=== PATIENT | male | born 1995 ===

== ENCOUNTER 2024-11-05 11:53 | Emergency (ER) | payer MEDICAID, OTHER ==
[~2024-11-05] VITALS: Ht 162.6 cm; Wt 84.7 kg
--- NOTE | 2024-11-05 12:29 | ED.PDOC ---
GI ASSESSMENT HPI Comments 29-year-old male presents with a chief complaint of abdominal pain. Patient states that his pain is localized to his lower abdomen region, nonradiating, and describes as cramping sensation. Patient denies any nausea, vomiting, or diarrhea. No other symptoms or modifying factors present at this time. Chief Complaint: Abdominal Pain Time Seen by MD: 12:19 Primary Care Provider: none Reviewed Notes: Medications, Allergies Allergies: Coded Allergies: NO KNOWN ALLERGIES (Unverified , 11/05/24) Home Meds Active Scripts Dicyclomine Hcl (BENTYL CAPSULE) 10 Mg Cp, 1 CAP PO Q6HPRN PRN for 10 Days, #100 CAP 3 Refills Prov:ADRI BELL MD 11/05/24 Ondansetron Odt 4MG Tab (ZOFRAN PO) 4 Mg Tb, 4 MG PO Q6HP PRN for 7 Days, #28 TAB ODT TAB-DISSOLVE IN MOUTH, THEN SWALLOW Prov:ADRI BELL MD 11/05/24 Information Source: Patient Mode of Arrival: Ambulatory Timing: Days Duration: Since onset Prehospital treatment: None Quality: Cramping Vomitus: None Stool: Normal Severity: Moderate Recent: None Recent Hx of: None Pain Location: RLQ, LLQ Past Medical History PAST MEDICAL HISTORY: Denies Surgical History: Denies all surgeries Family History Family History: Reviewed,noncontributory to illness, No family hx of Cancer, No family hx of DM, No family hx of Heart ewa, No family hx of HTN, No family hx ofKidney ewa, No family hx of Liver ewa, No family hx of Lung ewa, No family hx of Stroke Social History Smoker: Non-Smoker Alcohol: Denies ETOH Use Drugs: Denies Drug Use Lives In: Home Constitutional: denies: chills, diaphoresis, fatigue, fever, malaise, sweats, weakness, others EENTM: denies: blurred vision, double vision, ear bleeding, ear discharge, ear drainage, ear pain, ear ringing, eye pain, eye redness, hearing loss, mouth pain, mouth swelling, nasal discharge, nose bleeding, nose congestion, nose pain, photophobia, tearing, throat pain, throat swelling, voice changes, others Respiratory: denies: cough, hemoptysis, orthopnea, SOB at rest, shortness of breath, SOB with excertion, stridor, wheezing, others Cardiovascular: denies: chest pain, dizzy spells, diaphoresis, Dyspnea on exertion, edema, irregular heart beat, left arm pain, lightheadedness, palpitations, PND, syncope, others Gastrointestinal: reports: abdominal pain; denies: abdomen distended, blood streaked bowels, constipated, diarrhea, dysphagia, difficulty swallowing, hematemesis, melena, nausea, poor appetite, poor fluid intake, rectal bleeding, rectal pain, vomiting, others Genitourinary: denies: burning, dysuria, flank pain, frequency, hematuria, incontinence, penile discharge, penile sore, pain, testicle pain, testicle s welling, urgency, others Neurological: denies: dizziness, fainting, headache, left sided numbness, left sided weakness, numbness, paresthesia, pre-existing deficit, right sided numbness, right sided weakness, seizure, speech problems, tingling, tremors, weakness, others Musculoskeletal: denies: back pain, gout, joint pain, joint swelling, muscle pain, muscle stiffness, neck pain, others Integumetry: denies: bruises, change in color, change in hair/nails, dryness, laceration, lesions, lumps, rash, wounds, others Allergic/Immunocompromised: denies: Difficulty Healing, Frequent Infections, Hives, Itching, others Hematologic/Lymphatic: denies: anemia, blood clots, easy bleeding, easy bruising, swollen glands, others Endocrine: denies: excessive hunger, excessive sweating, excessive thirst, excessive urination, flushing, intolerance to cold, intolerance to heat, unexplained weight gain, unexplained weight loss, others Psychiatric: denies: anxiety, bipolar disorder, depression, hopeless, panic disorder, schizophrenia, sleepless, suicidal, others All Other Systems: Reviewed and Negative Physical Exam General Appearance: No Apparent Distress, Normal HEENT: Normal ENT Inspection, Pharynx Normal, TMs Normal Neck: Full Range of Motion, Non-Tender, Normal, Normal Inspection Respiratory: Chest Non-Tender, Lungs Clear, No Accessory Muscle Use, No Respiratory Distress, Normal Breath Sounds Cardiovascular: No Edema, No JVD, No Murmur, No Gallop, Normal Peripheral Pulses, Regular Rate/Rhythm Breast Exam: Deferred Gastrointestinal: No Organomegaly, Non Tender, No Pulsatile Mass, Normal Bowel Sounds, Soft Genitalia: Deferred Pelvic: Deferred Rectal: Deferred Extremities: No calf tenderness, Normal capillary refill, Normal inspection, N ormal range of motion, Non-tender, No pedal edema Musculoskeletal : Apperance: Normal 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 Was a procedure done?: No GI differential Dx Differential Diagnosis: Appendicitis, Bowel Obstruction, Diverticular disease, Gastritis/PUD, Gastroenteritis, Inflammatory BD, Urolithiasis, Dehydration, Other X-Ray, Labs, Meds, VS Vital Signs Date Time Temp Pulse Resp B/P (MAP) Pulse Ox O2 Delivery O2 Flow Rate FiO2 11/05/24 15:24 99.1 81 20 154/78 (103) 98 99.1 11/05/24 13:35 97.9 77 17 143/78 (99) 97 97.9 11/05/24 13:35 77 17 97 Room Air 11/05/24 13:30 74 14 95 Room Air* 0 21 11/05/24 12:04 99.5 78 15 138/73 (94) 97 Lab Test 11/05/24 15:56 11/05/24 12:35 Range/Units Urine Color Colorless Yellow Urine Clarity Clear Clear Urine pH 6.0 5.0-9.0 Urine Specific [place]st 1.024 1.001-1.035 Urine Protein Negative Negative Urine Ketones Negative Negative Urine Blood Negative Negative /uL Urine Nitrite Negative Negative Urine Bilirubin Negative Negative Urine Urobilinogen Normal Negative mg/dL Urine Leukocyte Esterase Negative Negative /uL Urine RBC 1 0 - 3 /hpf Urine Microscopic WBC 0-3 /HPF Urine Squamous Epithelial Cells None seen <5 /hpf Urine Bacteria None seen None Seen /hpf Urine Glucose Normal Normal mg/dL White Blood Count 6.2 4.4-10.8 10^3/uL Red Blood Count 5.18 4.5-5.90 10^6/uL Hemoglobin 16.1 13.5-17.5 g/dL Hematocrit 46.3 41.0-53.0 % Mean Corpuscular Volume 89.5 80.0-100.0 fL Mean Corpuscular Hemoglobin 31.2 28.0-32.0 pg Mean Corpuscular Hemoglobin Concent 34.8 32.0-36.0 g/dL Red Cell Distribution Width 13.1 11.8-14.3 % Platelet Count 240 140-450 10^3/uL Mean Platelet Volume 9.0 6.9-10.8 fL Neutrophils (%) (Auto) 57.8 37.0-80.0 % Lymphocytes (%) (Auto) 32.1 10.0-50.0 % Monocytes (%) (Auto) 7.4 0.0-12.0 % Eosinophils (%) (Auto) 2.3 0.0-7.0 % Basophils (%) (Auto) 0.4 0.0-2.0 % Neutrophils # (Auto) 3.6 1.6-8.6 10 ^3/uL Lymphocytes # (Auto) 2.0 0.4-5.4 10 ^3/uL Monocytes # (Auto) 0.5 0-1.3 10 ^3/uL Eosinophils # (Auto) 0.1 0-0.8 10 ^3/uL Basophils # (Auto) 0 0-0.2 10 ^3/uL Nucleated Red Blood Cells 0.1 % Sodium Level 139 136-145 mmol/L Potassium Level 3.7 3.5-5.1 mmol/L Chloride Level 104 98-107 mmol/L Carbon Dioxide Level 27 20-31 mmol/L Anion Gap 8 5-15 Blood Urea Nitrogen 12 9-23 mg/dL Creatinine 0.97 0.700-1.30 mg/dL Glomerular Filtration Rate Calc 108 >90 mL/min BUN/Creatinine Ratio 12.4 10.0-20.0 Serum Glucose 104 74-106 mg/dL Calcium Level 10.1 8.7-10.4 mg/dL Total Bilirubin 0.8 0.2-1.0 mg/dL Aspartate Amino Transferase (AST) 20 13-40 U/L Alanine Aminotransferase (ALT) 30 7-40 U/L Alkaline Phosphatase 84 46-116 U/L Total Protein 7.6 5.7-8.2 g/dL Albumin 5.3 H 3.2-4.8 g/dL Lipase 38 12-53 U/L Current Medications Medications (Trade) Dose Ordered Sig/Janey Route Start Time Stop Time Status Last Admin Sodium Chloride 1,000 ml @ 1,000 mls/hr Q1H ONCE IVB 11/05/24 12:15 11/05/24 13:14 DC 11/05/24 13:25 Time of 1ST Reevaluation: 12:49 Reevaluation 1ST: Unchanged Time of 2ND Reevaluation: 13:50 Reevaluation 2ND: Improved Patient Education/Counseling: Diagnosis, Treatment, Prognosis Family Education/Counseling: Diagnosis, Treatment, Prognosis Departure 1 Departure Time of Disposition: 13:50 Impression: Primary Impression: LLQ abdominal pain Additional Impression: Periumbilical hernia Disposition: HOME / SELF CARE / HOMELESS Condition: Stable e-Prescriptions Dicyclomine Hcl (BENTYL CAPSULE) 10 Mg Cp 1 CAP PO Q6HPRN PRN for 10 Days, #100 CAP 3 Refills Prov: ADRI BELL MD 11/05/24 Ondansetron Odt 4MG Tab (ZOFRAN PO) 4 Mg Tb 4 MG PO Q6HP PRN for 7 Days, #28 TAB ODT TAB-DISSOLVE IN MOUTH, THEN SWALLOW Prov: ADRI BELL MD 11/05/24 Discharged With: Self Critical Care Note Critical Care Time?: No Stability Stability form required: No I personally scribed for ADRI BELL MD ([email or web address]) on 11/05/24 at 12:29. Electronically submitted by Roberto Cyr ([email or web address]). ADRI BELL MD Nov 05, 2024 12:29
[2024-11-05 13:15] LABS: Basophils # (auto) 0 10 ^3/uL (0-0.2); Basophils % (auto) 0.4 % (0.0-2.0); Eosinophils # (auto) 0.1 10 ^3/uL (0-0.8); Eosinophils % (auto) 2.3 % (0.0-7.0); Hematocrit 46.3 % (41.0-53.0); Hemoglobin 16.1 g/dL (13.5-17.5); Lymphocytes % (auto) 32.1 % (10.0-50.0); Mean Corpuscular Hemoglobin 31.2 pg (28.0-32.0); Mean Corpuscular Hgb Conc. 34.8 g/dL (32.0-36.0); Mean Corpuscular Volume 89.5 fL (80.0-100.0); Monocytes # (auto) 0.5 10 ^3/uL (0-1.3); Monocytes % (auto) 7.4 % (0.0-12.0); Neutrophils # (auto) 3.6 10 ^3/uL (1.6-8.6); Neutrophils % (auto) 57.8 % (37.0-80.0); Nucleated Red Blood Cells % 0.1 %; Platelet Count (auto) 240 10^3/uL (140-450); Red Blood Cells 5.18 10^6/uL (4.5-5.90); Red Cell Distribution Width 13.1 % (11.8-14.3); White Blood Cell 6.2 10^3/uL (4.4-10.8)
[2024-11-05 13:18] LABS: Alanine Aminotransferase 30 U/L (7-40); Alkaline Phosphatase 84 U/L (46-116); Anion Gap 8 (5-15); Aspartate Aminotransferase 20 U/L (13-40); BUN/Creatinine Ratio 12.4 (10.0-20.0); Blood Urea Nitrogen 12 mg/dL (9-23); Calcium 10.1 mg/dL (8.7-10.4); Carbon Dioxide 27 mmol/L (20-31); Chloride 104 mmol/L (98-107); Glucose 104 mg/dL (74-106); Potassium 3.7 mmol/L (3.5-5.1); Sodium 139 mmol/L (136-145)
[2024-11-05 13:19] LABS: Bilirubin, Total 0.8 mg/dL (0.2-1.0); Total Protein 7.6 g/dL (5.7-8.2)
[2024-11-05 13:22] LABS: Albumin 5.3 g/dL (3.2-4.8)
[2024-11-05] MEDS: SODIUM CHLORIDE 0.9% 1,000 ML IVB ONE (13:25)
[2024-11-05 13:30] VITALS: PULSE 74; RESP 14; O2SAT 95
[2024-11-05 13:32] LABS: Lipase 38 U/L (12-53)
[2024-11-05] MEDS: IOHEXOL 300 MG/ML 100ML BOTTLE IJ ONE (13:38)
--- NOTE | 2024-11-05 14:16 | DVH ---
Exam: CT CT AB PEL WITH IV CON ONLY History: LLQ abd pain COMPARISON: None Technique: Multidetector spiral CT of the abdomen and pelvis was performed from lung bases to pubic s ymphysis. Intravenous contrast was administered during this examination. Portal venous imaging was obtained. Axial, coronal and sagittal multiplanar reformats were performed by the technologist on a separate workstation. Radiation Dose : 1. Abdomen/Pelvis: CTDIvol 10 mGy, DLP 629.39 mGy*cm. CONTRAST: Type of contrast: Omnipaque 300 Contrast injected: 100 ml Contrast ingested: 0 ml Findings: Lung Bases: No acute or significant lung base finding. Normal heart size. No pleural or pericardial effusion. Liver: Mild hepatomegaly and hepatic steatosis. No focal lesions. Gallbladder and Biliary Tree: Unremarkable Spleen: Unremarkable Pancreas: The pancreas is normal in appearance without focal lesions or abnormal enhancement. Adrenal Glands: Unremarkable Kidneys: No hydronephrosis. Bladder: Unremarkable Bowel: The stomach is grossly normal in appearance. Small bowel and colon are normal in caliber and d istribution. The appendix is normal. Ascites: Absent Lymphadenopathy: No lymphadenopathy. Abdominal Wall and Mesentery: Small periumbilical fat containing hernia. Vasculature: The visualized abdominal aorta is normal in size and caliber. Abdominal and pelvic vess els demonstrate normal enhancement. Pelvic Organs: Unremarkable Musculoskeletal: No aggressive focal bony lesions, acute fractures or dislocation. Minimal degenerati ve changes. IMPRESSION: 1. No acute abdominal or pelvic finding. 2. Mild hepatomegaly and hepatic steatosis. Radiation optimization: All CT scans at this facility use at least one of these dose optimization leonel hniques: automated exposure control mA and/or kV adjustment per patient size (includes targeted exam s where dose is matched to clinical indication) or iterative reconstruction.
[2024-11-05] MEDS ORDERED: ZOFR4T PO (15:16)
[2024-11-05] MEDS ORDERED: DICY10CA PO (15:16)
[2024-11-05 15:24] VITALS: BP 154/78; PULSE 81; RESP 20; TEMP 99.1; O2SAT 98
[2024-11-05 15:57] LABS: Urine Bacteria None Seen /hpf (None Seen)
[2024-11-05 16:11] LABS: Urine Blood Negative /uL (Negative); Urine Clarity Clear (Clear); Urine Color Colorless (Yellow); Urine Protein, UAD Negative (Negative); Urine Specific Gravity 1.024 (1.001-1.035); Urine Squamous Epithelial Cell None Seen /hpf (<5); Urine Urobilinogen Normal (Negative)
== END 2024-11-05 16:15 | disposition home or self-care (01) ==
LOC: ER 11:53
DX: K42.9 Umbilical hernia without obstruction or gangrene (principal); R10.32 Left lower quadrant pain
CPT/HCPCS: 36415; 74177; 80053; 81001; 83690; 85025; 96360; 99285; J7030; Q9967